=== PATIENT | male | born 1955 | race Caucasian/White ===

== ENCOUNTER 2016-03-18 14:28 | Emergency (ER) | payer MEDICARE ==
[2016-03-18 17:51] LABS: BASOPHILS 0.8 % (0.0-2.0); EOSINOPHILS 0 % (0-7); HEMATOCRIT 46.9 % (42.0-54.0); HEMOGLOBIN 15.6 g/dL (13.5-17.5); IMMATURE GRANULOCYTES 0.3 % (0-5); LYMPHOCYTES 14.4 % (15-50); MCH 31.1 pg (26.0-34.0); MCHC 33.3 g/dL (31.0-37.0); MCV 93.4 fL (80.0-100.0); MEAN PLATELET VOLUME 11.5 fL (7.4-10.4); NEUTROPHILS 69.5 % (40-80); PLATELET COUNT 202 10x3/uL (130-400); RBC 5.02 10x6/uL (4.20-6.10); RDW 13.2 % (11.5-14.5); WBC 7.9 10x3/uL (4.8-10.8)
[2016-03-18 18:24] LABS: ALKALINE PHOSPHATASE 62 U/L (46-116); ALT (SGPT) 55 U/L (10-68); BILIRUBIN - TOTAL 0.88 mg/dL (0.2-1.3); CALC OSMOLALITY 280 mosm/kg (275-300); CALCIUM 9.1 mg/dL (8.5-10.1); CARBON DIOXIDE 25.2 mmol/L (21.0-32.0); CHLORIDE - SERUM 101 mmol/L (98-107); CREATININE - SERUM 1.3 mg/dL (0.6-1.3); GLUCOSE 115 mg/dL (74-106); POTASSIUM - SERUM 3.9 mmol/L (3.5-5.1); PROTEIN - SERUM 7.9 g/dL (6.4-8.2); SODIUM 139 mmol/L (136-145); UREA NITROGEN 18 mg/dL (7-18); eGFR NON AFRICAN AMERICAN 60 mL/min (90-120)
[2016-03-18 18:32] LABS: CREATINE KINASE 65 UL (21-232); PRO BNP 212 pg/mL (0-125)
[2016-03-18 18:57] LABS: TROPONIN-I < 0.017 ng/mL (0.000-0.060)
[2016-03-18 19:59] LABS: APPEARANCE HAZY (CLEAR); BILIRUBIN NEGATIVE (NEGATIVE); COLOR DK YELLOW (YELLOW); GLUCOSE NEGATIVE (NEGATIVE); KETONE NEGATIVE (NEGATIVE); LEUKOCYTE ESTERASE TRACE (NEGATIVE); NITRITE NEGATIVE (NEGATIVE); PROTEIN 1+ mg/dL (NEGATIVE); SPECIFIC GRAVITY 1.025 (1.005-1.020); UROBILINOGEN NORMAL (NORMAL)
[2016-03-18 20:01] LABS: AMORPHOUS SEDIMENT <1+ /lpf (NONE SEEN); BACTERIA FEW /hpf (NONE SEEN); EPITHELIAL CELLS 0-5 /hpf (0-5); HYALINE CAST OCC /lpf (NONE SEEN); MUCUS >1+ /lpf (NONE SEEN); RED CELLS - URINE 0-5 /hpf (0-5); WHITE CELLS - URINE 0-5 /hpf (0-5)
== END 2016-03-18 20:20 | disposition home or self-care (01) ==
LOC: D.ER 14:28
PROVIDERS: Family Medicine
DX: J11.1 Influenza due to unidentified influenza virus with other respiratory manifestations (principal); R53.1 Weakness; I10 Essential (primary) hypertension

== ENCOUNTER → 2017-06-05 07:56 | Outpatient (CLI) | payer MEDICARE | END | disposition home or self-care (01) | LOC: D.MRI 06-03 13:00 | DX: M25.511 Pain in right shoulder (principal) ==

== ENCOUNTER 2017-09-12 06:25 | Day surgery (SDC) | payer MEDICARE ==
[2017-09-10 10:11] LABS: HEMATOCRIT 45.1 % (42.0-54.0); HEMOGLOBIN 15.2 g/dL (13.5-17.5); MCH 31.1 pg (26.0-34.0); MCHC 33.7 g/dL (31.0-37.0); MCV 92.4 fL (80.0-100.0); MEAN PLATELET VOLUME 10.9 fL (7.4-10.4); RBC 4.88 10x6/uL (4.20-6.10); RDW 12.5 % (11.5-14.5); WBC 7.2 10x3/uL (4.8-10.8)
[~2017-09-12] VITALS: Ht 188 cm; Wt 96.6 kg
--- NOTE | ~2017-09-12 | OP ---
PATIENT NAME: ANA SMITH MEDICAL RECORD: [id number] :55 LOCATION:[facility] ADMISSION DATE: SURGEON: TOMAS MOREL MD DATE OF OPERATION: 09/12/2017 PREOPERATIVE DIAGNOSIS: Rotator cuff tear of the right shoulder. POSTOPERATIVE DIAGNOSIS: Rotator cuff tear of the right shoulder. PROCEDURES: Arthroscopic rotator cuff repair of the shoulder with subacromial decompression and acromioplasty. SURGEON: Tomas Morel MD ANESTHESIA: General. INTRAOPERATIVE COMPLICATIONS: None. SUMMARY OF PATHOLOGIC FINDINGS: The patient did indeed have a full-thickness rotator cuff tear. While initially he was thought to have SLAP tear, he did but it was more degenerative in nature and not disconnected. At the time of surgery, the patient was found to have full-thickness rotator cuff tear with residual acromion. OPERATIVE SUMMARY IN DETAIL: After obtaining the appropriate preoperative orthopaedic surgery consent as well as anesthetic consultation, evaluation, and clearance, the patient was brought to the operating room and placed on the operating table in the supine position. After general laryngeal mask airway was administered, the patient was placed in a left lateral decubitus position. All pressure points were well padded to include down leg peroneal pad as well as axillary roll. The patient was held firmly to the operating table using the vacuum pack suction system. The patient's right upper extremity and shoulder were then prepped and draped in routine sterile fashion. The arm was held in Arthrex traction at 30 degrees of forward flexion and 30 degrees of abduction with 10 pounds of traction laterally. Arthroscopy was established in the glenohumeral joint from posterior portal. Transrotator cuff portal was established, through which debridement of the rotator cuff tear was carried out. Minimal debridement was done of the labrum at the area of the labral tearing. Attention was then turned to the subacromial space. While in the subacromial space, surface tissue ablation system was used to denude the undersurface of acromion of all soft tissue elements. A 5.0 barrel bur was used to perform an acromioplasty of the residual anterior acromion hook. Decortication was carried out over the footprint of supraspinatus tendon. Then, a #2 FiberTape was passed in inverted mattress style and anchored laterally with a 5.5 SwiveLock from Arthrex. Having completed this, arthroscopy portal was closed in routine interrupted fashion. Sterile dressings were applied. The patient was awakened and taken to recovery room in stable condition. All final needle and sponge counts were correct. TRANSINT:[id number] Voice Confirmation ID: [id number] DOCUMENT ID: [id number] OPERATIVE REPORT [id number] ANA SMITH MD, TOMAS BHANDARI at 1547 CC: [id number] DICTATION DATE: 09/16/17918 COMBINATION WELDER APPRENTICE: 09/16/17 1227 [facility] 09/12/17 [id number] [place] [address]
[~2017-09-12 06:25] MED LIST: ZESTRIL20 MG PO
[2017-09-12 11:47] VITALS: BP 131/85; Ht 188 cm; Wt 96.6 kg
[2017-09-12] MEDS ORDERED: HYDROCODONE-APA1 TAB PO (13:44)
== END 2017-09-12 15:30 | disposition home or self-care (01) ==
LOC: D.OPS 06:25 → D.PAN 11:15 → D.OPS 12:15
PROVIDERS: Anesthesiology
DX: M75.121 Complete rotator cuff tear or rupture of right shoulder, not specified as traumatic (principal); S43.431A Superior glenoid labrum lesion of right shoulder, initial encounter; X58.XXXA Exposure to other specified factors, initial encounter; Z01.812 Encounter for preprocedural laboratory examination

== ENCOUNTER → 2017-09-19 10:24 | Outpatient (CLI) | payer MEDICARE ==
[2017-09-12 11:47] VITALS: BMI 27.4
[~2017-09-19 10:24] MED LIST changes: +HYDROCODONE-APA1 TAB PO
== END | disposition home or self-care (01) ==
LOC: D.CT 10:24
DX: R91.1 Solitary pulmonary nodule (principal)

== ENCOUNTER → 2018-03-06 11:11 | Outpatient (CLI) | payer MEDICARE ==
[2017-09-12 11:47] VITALS: BMI 27.4
[2018-03-07 09:14] LABS: IMMUNOGLOBULIN A 285 mg/dL (61-437)
== END | disposition home or self-care (01) ==
LOC: D.LAB 02-18 08:30 → D.RT 02-18 08:30 → D.CT 02-18 08:30 → D.RT 02-18 09:45 → D.LAB 02-18 10:00 → D.RT 11:00
PROVIDERS: Internal Medicine Pulmonary Disease
DX: R91.1 Solitary pulmonary nodule (principal); R06.09 Other forms of dyspnea

== ENCOUNTER 2018-12-26 11:06 | Emergency (ER) | payer MEDICARE ==
[~2018-12-26] VITALS: Ht 188 cm; Wt 93.2 kg
[2018-12-26 11:47] LABS: EOSINOPHILS 6.6 % (0-7); HEMATOCRIT 43.9 % (42.0-54.0); HEMOGLOBIN 15.2 g/dL (13.5-17.5); IMMATURE GRANULOCYTES 0.3 % (0-5); LYMPHOCYTES 41.5 % (15-50); MCH 31.8 pg (26.0-34.0); MCHC 34.6 g/dL (31.0-37.0); MCV 91.8 fL (80.0-100.0); MEAN PLATELET VOLUME 11.3 fL (7.4-10.4); MONOCYTES 8.2 % (2-11); NEUTROPHILS 42.4 % (40-80); PLATELET COUNT 263 10x3/uL (130-400); RBC 4.78 10x6/uL (4.20-6.10); WBC 6.8 10x3/uL (4.8-10.8)
[2018-12-26 11:51] LABS: CALC OSMOLALITY 278 mosm/kg (275-300); CALCIUM 8.6 mg/dL (8.5-10.1); CARBON DIOXIDE 27.6 mmol/L (21.0-32.0); CHLORIDE - SERUM 106 mmol/L (98-107); CREATININE - SERUM 1.1 mg/dL (0.6-1.3); GLUCOSE 137 mg/dL (74-106); POTASSIUM - SERUM 3.5 mmol/L (3.5-5.1); SODIUM 138 mmol/L (136-145); UREA NITROGEN 15 mg/dL (7-18); eGFR NON AFRICAN AMERICAN 72 mL/min (90-120)
[2018-12-26 12:08] LABS: ALBUMIN 3.6 g/dL (3.4-5.0); ALKALINE PHOSPHATASE 92 U/L (46-116); ALT (SGPT) 78 U/L (10-68); CKMB 2.6 U/L (0.0-3.6); CREATINE KINASE 219 UL (21-232); PROTEIN - SERUM 7.2 g/dL (6.4-8.2); TROPONIN-I < 0.017 ng/mL (0.000-0.060)
[2018-12-26 12:40] VITALS: Ht 188 cm; Wt 93.2 kg
[2018-12-26 13:12] VITALS: BP 138/84
--- NOTE | 2019-01-06 11:40 | CN ---
PATIENT NAME:ANA HEDRICK MEDICAL RECORD: [id number] : 55 LOCATION:[facility] ADMIT DATE: ACCOUNT: [id number] CONSULTING PHYSICIAN: LAURA RIOS MD REFERRING PHYSICIAN: NANCY TEJADA MD DATE OF CONSULTATION: 12/26/2018 ADMITTING DIAGNOSES: 1. Chest pain. 2. Hypertension. 3. Family history of coronary artery disease. HISTORY OF PRESENT ILLNESS: Mr. Hedrick presents with 4 days of chest pain, some typical components that there is a pressure sensation radiating to his arm, feeling like a heaviness across the anterior chest, some atypical components and that there is definitely positional sharp component to the pain as well. He has no previous cardiac history, no previous cardiac workup. He does have a family history of coronary artery disease. His EKG has nonspecific ST-T abnormalities in the lateral leads. PHYSICAL EXAMINATION: CONSTITUTIONAL/GENERAL APPEARANCE: Well nourished, well developed, appears stated age. EYES: Lids and conjunctivae noninjected. No discharge. No pallor. ENT: Lips within normal limit. No cyanosis. No pallor. NECK: Carotid arteries, bilateral normal upstroke. No bruits. No thrills. No jugular venous pressure or distention. CERVICAL LYMPH NODES: Nontender. Nonenlarged. THYROID: Not enlarged. No nodules. CARDIOVASCULAR: Precordial exam, nondisplaced. No heaves or pericardial thrills. Rate and rhythm, regular. Heart sounds, normal S1, normal S2. No S3, no gallop, no rub. Systolic murmur, not heard. Diastolic murmur, not heard. RESPIRATORY: Respiratory effort, unlabored. Normal curvature. No thoracic deformity. No chest wall tenderness. Percussion, resonant. Auscultation, clear. No wheezes, no rales, no rhonchi. ABDOMEN: Soft, nondistended, nontender. No abdominal pain, no vomiting and normal appetite. MUSCULOSKELETAL: No joint tenderness, normal gait, normal tone. SKIN: Warm and dry. OVERALL IMPRESSION: Chest pain, some typical components for angina, some atypical components. At this time, we will place him on Imdur 30 mg every day and risk stratify with stress testing as an outpatient. TRANSINT:[id number] Voice Confirmation ID: [id number] DOCUMENT ID: [id number] LAURA RIOS MD at 1140 CC: [id number] DICTATION DATE: 12/26/18 1241 ANIMAL NUTRITION TEACHER: 12/26/18 1335 DEP ER 12/26/18 [id number] [place] [address]
== END 2018-12-26 13:10 | disposition home or self-care (01) ==
LOC: D.ER 11:06
PROVIDERS: Family Medicine
DX: R07.9 Chest pain, unspecified (principal)

== ENCOUNTER → 2019-01-08 11:32 | Outpatient (CLI) | payer MEDICARE ==
[2018-12-26 12:40] VITALS: BMI 26.3
--- NOTE | 2019-01-14 14:07 | ST ---
PATIENT:ANA SMITH MEDICAL RECORD: [id number] SEX: M [facility] ORDER #: ADMISSION DATE: 01/08/19 AGE OF PATIENT: 63 REFERRING PHYSICIAN: INTERPRETING PHYSICIAN: LAURA RIOS MD DATE OF SERVICE: 01/08/2019 INDICATION: Angina, hypertension, family history of coronary artery disease. TECHNIQUE: He was exercised on standard Lexiscan protocol with 33 mCi of sestamibi injected at peak stress, 11 mCi used previously for rest images. FINDINGS: Gated SPECT reveals a preserved ejection fraction at 60% with decreased thickening and brightening throughout the inferior segments. SPECT imaging Cardiolite was used as myocardial perfusion agent. There is a fixed perfusion defect inferiorly compatible with previous inferior myocardial infarction. There is no evidence of reversibility, in fact the defect improves showing reversed redistribution with stress. OVERALL IMPRESSION: This is a stable nuclear stress test showing only a fixed perfusion defect inferiorly. No ongoing ischemia and ejection fraction preserved at 60%. Continue medical management of the coronary artery disease and cardiac risk factors. TRANSINT:[id number] Voice Confirmation ID: [id number] DOCUMENT ID: [id number] LAURA RIOS MD at 1407 CC: [id number] DICTATION DATE: 01/09/19 1448 GRAVITY PROSPECTING OPERATOR: 01/10/19 0740 [facility] CLI 01/08/[address] [address]
== END | disposition home or self-care (01) ==
LOC: D.HCCARDIO 11:32
PROVIDERS: ATTEND Internal Medicine Interventional Cardiology
DX: R07.9 Chest pain, unspecified (principal)

== ENCOUNTER 2019-05-23 08:50 | Emergency (ER) | payer MEDICARE ==
[~2019-05-23] VITALS: Ht 188 cm; Wt 97.7 kg
[2019-05-23 08:55] VITALS: Ht 188 cm; Wt 97.7 kg
[2019-05-23] MEDS ORDERED: HYDROCODON-ACE1 EA10 PO (09:54)
[2019-05-23 10:19] LABS: BASOPHILS 0.7 % (0-2); EOSINOPHILS 5.2 % (0-7); HEMATOCRIT 39.6 % (42.0-54.0); HEMOGLOBIN 13.4 g/dL (13.5-17.5); IMMATURE GRANULOCYTES 0.4 % (0-5); LYMPHOCYTES 18.8 % (15-50); MCH 31.1 pg (26.0-34.0); MCHC 33.8 g/dL (31.0-37.0); MCV 91.9 fL (80.0-100.0); MEAN PLATELET VOLUME 10.8 fL (7.4-10.4); MONOCYTES 7.5 % (2-11); NEUTROPHILS 67.4 % (40-80); PLATELET COUNT 298 10x3/uL (130-400); RBC 4.31 10x6/uL (4.20-6.10); RDW 13.3 % (11.5-14.5); WBC 7.6 10x3/uL (4.8-10.8)
[2019-05-23 10:35] LABS: ANION GAP 11.4 mmol/L (8-16); CALCIUM 8.6 mg/dL (8.5-10.1); CARBON DIOXIDE 27.4 mmol/L (21.0-32.0); CREATININE - SERUM 1.1 mg/dL (0.6-1.3); POTASSIUM - SERUM 3.8 mmol/L (3.5-5.1)
[2019-05-23 10:40] LABS: ALBUMIN 3.4 g/dL (3.4-5.0); BILIRUBIN - TOTAL 0.48 mg/dL (0.2-1.3); PROTEIN - SERUM 6.5 g/dL (6.4-8.2)
[2019-05-23 10:45] LABS: APTT 29.4 SECONDS (22.8-39.4); INR 1.1 (0.85-1.17); PROTIME 14.1 SECONDS (11.6-15.0)
[2019-05-23 10:49] LABS: BILIRUBIN NEGATIVE (NEGATIVE); GLUCOSE NEGATIVE (NEGATIVE); KETONE NEGATIVE (NEGATIVE); NITRITE NEGATIVE (NEGATIVE); SPECIFIC GRAVITY 1.015 (1.005-1.020); UROBILINOGEN NORMAL (NORMAL)
[2019-05-23 11:02] VITALS: BP 171/84
== END 2019-05-23 11:03 | disposition home or self-care (01) ==
LOC: D.ER 08:50
PROVIDERS: Family Medicine
DX: S22.42XA Multiple fractures of ribs, left side, initial encounter for closed fracture (principal); S20.212A Contusion of left front wall of thorax, initial encounter; I10 Essential (primary) hypertension; V06.99XA Pedestrian with other conveyance injured in collision with other nonmotor vehicle, unspecified whether traffic or nontraffic accident, initial encounter; Y93.9 Activity, unspecified; Y92.9 Unspecified place or not applicable

== ENCOUNTER 2020-09-03 15:22 | Inpatient (IN) | payer MEDICARE, MEDICAID ==
[~2020-09-03] VITALS: Ht 188 cm; Wt 105.2 kg
[~2020-09-03 15:22] MED LIST changes: +BACLOFEN20 M1 PO; +HYDROCODON-ACE1 EA10 PO; +VOLTAREN75 MG PO
[2020-09-03 18:46] LABS: CALCIUM 9.5 mg/dL (8.5-10.1); CARBON DIOXIDE 29.3 mmol/L (21.0-32.0); CREATININE - SERUM 1.2 mg/dL (0.6-1.3); POTASSIUM - SERUM 4.3 mmol/L (3.5-5.1)
[2020-09-03 18:47] LABS: EOSINOPHILS 4.4 % (0-7); HEMATOCRIT 46.5 % (42.0-54.0); HEMOGLOBIN 15.7 g/dL (13.5-17.5); LYMPHOCYTES 35.6 % (15-50); MCH 31.2 pg (26.0-34.0); MCHC 33.8 g/dL (31.0-37.0); MCV 92.2 fL (80.0-100.0); MEAN PLATELET VOLUME 9.4 fL (7.4-10.4); MONOCYTES 10.5 % (2-11); NEUTROPHILS 48.5 % (40-80); PLATELET COUNT 255 10x3/uL (130-400); RBC 5.05 10x6/uL (4.20-6.10); RDW 12.9 % (11.5-14.5); WBC 7.7 10x3/uL (4.8-10.8)
[2020-09-03 18:52] LABS: ALBUMIN 4.2 g/dL (3.4-5.0); BILIRUBIN - TOTAL 1.31 mg/dL (0.2-1.3); PROTEIN - SERUM 7.9 g/dL (6.4-8.2)
[2020-09-03 18:55] LABS: APTT 32.4 SECONDS (22.8-39.4)
[2020-09-03 19:03] LABS: INR 1.17 (0.85-1.17); PROTIME 13.8 SECONDS (11.6-15.0)
[2020-09-03 21:24] VITALS: BP 142/83
[2020-09-04] VITALS: BP 126/73
[2020-09-04 00:17] VITALS: BP 139/77; Ht 188 cm; Wt 105.2 kg
[2020-09-04 04:00] VITALS: BP 124/79
[2020-09-04 07:03] LABS: BASOPHILS 1.4 % (0-2); EOSINOPHILS 8.4 % (0-7); HEMATOCRIT 44.6 % (42.0-54.0); HEMOGLOBIN 14.9 g/dL (13.5-17.5); MCH 31.1 pg (26.0-34.0); MCHC 33.4 g/dL (31.0-37.0); MEAN PLATELET VOLUME 9.8 fL (7.4-10.4); MONOCYTES 12.8 % (2-11); NEUTROPHILS 35.4 % (40-80); PLATELET COUNT 239 10x3/uL (130-400); RBC 4.79 10x6/uL (4.20-6.10); RDW 13.5 % (11.5-14.5); WBC 5.8 10x3/uL (4.8-10.8)
[2020-09-04 07:38] LABS: ALBUMIN 3.5 g/dL (3.4-5.0); ALKALINE PHOSPHATASE 80 U/L (30-120); ALT (SGPT) 119 U/L (10-68); BILIRUBIN - TOTAL 0.72 mg/dL (0.2-1.3); CALC OSMOLALITY 283 mosm/kg (275-300); CALCIUM 8.7 mg/dL (8.5-10.1); CARBON DIOXIDE 25.4 mmol/L (21.0-32.0); CHLORIDE - SERUM 106 mmol/L (98-107); GLUCOSE 98 mg/dL (74-106); MAGNESIUM - SERUM 2.2 mg/dL (1.8-2.4); PHOSPHOROUS 4.1 mg/dL (2.5-4.9); POTASSIUM - SERUM 3.9 mmol/L (3.5-5.1); SODIUM 141 mmol/L (136-145); UREA NITROGEN 21 mg/dL (7-18); eGFR NON AFRICAN AMERICAN 80 mL/min (90-120)
[2020-09-04 08:01] VITALS: BP 120/68
--- NOTE | 2020-09-04 09:43 | NUR ---
IV THERAPY REMOVED BY PT WITH TIP INTACT. PT REMOVED TELEMETRY WELL AT 0720 THIS AM. PT REFUSED WHEEL CHAIR TO ROOM. RANDI
--- NOTE | 2020-09-04 19:35 | MORECARE ---
CASE MANAGEMENT DISCHARGE SUMMARY PATIENT: ANA SMITH UNIT: [id number] ADM DATE: 09/03/20 AGE: 65 : 55 SEX: M ROOM/BED: D[facility] AUTHOR: KEVIN,DOC PHYSICIAN: REFERRING PHYSICIAN: JEEVAN GRAHAM MD DATE OF SERVICE: 09/04/20 Case Management Discharge Planning Summary DCP REVIEW SUMMARY ANTICIPATED D/C DATE: 09/04/2020 EXPECTED LOS : 1 CASE STATUS: DCP Initiated INITIAL REVIEW: 09/03/2020 INITIAL REVIEWER: Jose Cota FINAL DISCHARGE DISPOSITION: : FINAL REVIEWER: FINAL REVIEW DATE: DCP Focus Questions & Answers QUESTION: ANSWER : PATIENT: ANA SMITH ENCOUNTER: [id number] MEDICAL RECORD#: [id number] ADMISSION DATE: 09/03/2020 DISCHARGE DATE: 09/04/2020 ATTENDING MD: AUDRA: AGE: 65 MARITAL STATUS: S DC PLAN ID: [id number] FACILITY: [facility] PRINTED ON: 09/04/20 19:35 CT All edits/amendments must be made on the electronic document DICTATION DATE: 09/04/201933 FOUNDATION ASSISTANT: CLIFF 09/04/201933 RPT#: [id number] DC DATE:09/04/20 STATUS: DIS IN [facility] [address] [place] [address] END OF REPORT
--- NOTE | 2020-09-04 19:46 | MORECARE ---
CASE MANAGEMENT DISCHARGE SUMMARY PATIENT: ANA HEDRICK UNIT: [id number] ADM DATE: 09/03/20 AGE: 65 : 55 SEX: M ROOM/BED: D.2234 AUTHOR: MARIO BROWN PHYSICIAN: REFERRING PHYSICIAN: JEEVAN GRAHAM MD DATE OF SERVICE: 09/04/20 Case Management Discharge Planning Summary COMMENTS ENTERED DATE: 09/04/20 19:39 CT COMMENT TYPE: Discharge Planning REVIEWER: Jose Cota CM met with patient to complete DC plan and to evaluate needs. Patient lives independently alone with strong support and stated that his person to notify is his brother, Derrick Hedrick, . Patient stated that his home is safe and has electricity and running water. Patient stated that he is able to enter and move about his home without difficulty. Patient stated that he has no problems paying for medications and he fills his medications at [facility]. At discharge, the patient plans to return home and feels this is a safe discharge. CM discussed availability of home health, rehab services, and medical equipment. Patient declined HHS, SNF, IPR, and DME. Patient voiced no other needs at this time and is satisfied with DC plan. Transportation provider at discharge will be via cab paid by patient. DC IMM delivered, explained, signed by the patient, and placed in chart. Signed form also left with the patient. CM will continue to follow and will assist as needed with dc plans/needs. DCP REVIEW SUMMARY ANTICIPATED D/C DATE: 09/04/2020 EXPECTED LOS : 1 CASE STATUS: DCP Initiated INITIAL REVIEW: 09/03/2020 INITIAL REVIEWER: Jose Cota FINAL DISCHARGE DISPOSITION: : FINAL REVIEWER: FINAL REVIEW DATE: DCP Focus Questions & Answers DCP Evaluation QUESTION: ANSWER Patient gives permission to discuss discharge plans with: (name, relationship and number) : brotherDerrick, Patient's ability to cope with chronic illness : d. No chronic illness Patient's current cognitive status: : *Oriented to person, place, situation, time and present Family / Caregiver's ability to cope with chronic illness: : a. Adequate (ability to meet patient's medical needs, ensures patient attends medical appts.) Patient and/or caregiver agree upon recommended discharge plan? : Yes Physical Status: : Independent with ADL's Family / Caregiver's ability to cope with chronic illness: : a. Adequate (ability to meet patient's medical needs, ensures patient attends medical appts.) Functional screen assessment: : Basic needs can adequately be met by self Does the patient have the ability to pay for or attain post discharge needs / services? : Yes Living Arrangements: : Home Alone with Support Is there a likelihood that the patient will require additional services to return to the preadmission environment? : No Equipment needed for post hospitalization: : None Baseline cognitive status: : *Oriented to person, place, situation, time and present Patient with capacity for self-care or can be cared for in same environment as prior to hospitalization? : Yes Physical environment modification needed / anticipated for discharge: : No Medication Management: : Patient states can afford medications Medication Management: : Patient states can read and understand medication labels Pharmacy name(s): : [facility]. Does Patient have transportation to get home and to follow-up medical appointments when discharged from the hospital? : Yes Would patient like to participate in any Care Coordination programs (if applicable): : Not applicable Does the patient have electricity at home? : Yes Does the patient have running water in their house? : Yes Equipment in use: : None Mental health screen: : No mental health history DCP Re-evaluation QUESTION: ANSWER Would patient like to participate in any Care Coordination programs (if applicable): : Not applicable PATIENT: ANA HEDRICK ENCOUNTER: [id number] MEDICAL RECORD#: [id number] ADMISSION DATE: 09/03/2020 DISCHARGE DATE: 09/04/2020 ATTENDING MD: AUDRA: AGE: 65 MARITAL STATUS: S DC PLAN ID: [id number] FACILITY: [facility] PRINTED ON: 09/04/20 19:45 CT All edits/amendments must be made on the electronic document DICTATION DATE: 09/04/201944 NEUROLOGIST: CLIFF 09/04/201944 RPT#: [id number] DC DATE:09/04/20 STATUS: DIS IN [facility] [address] [place] [address] END OF REPORT
== END 2020-09-04 09:47 | disposition home or self-care (01) | DRG 536 ==
LOC: D.ER 15:22 → D.EDHOLD 17:54 → D.MS 20:08
PROVIDERS: Family Medicine; ADMIT Family Medicine; ATTEND Family Medicine
DX: S32.591A Other specified fracture of right pubis, initial encounter for closed fracture (principal); S22.31XA Fracture of one rib, right side, initial encounter for closed fracture; S80.02XA Contusion of left knee, initial encounter; I10 Essential (primary) hypertension; W01.0XXA Fall on same level from slipping, tripping and stumbling without subsequent striking against object, initial encounter; Y93.9 Activity, unspecified; Y92.9 Unspecified place or not applicable

== ENCOUNTER 2020-09-05 15:21 | Emergency (ER) | payer MEDICARE, MEDICAID ==
[~2020-09-05] VITALS: Ht 188 cm; Wt 97.7 kg
[2020-09-05 15:45] VITALS: BP 110/83; Ht 188 cm; Wt 97.7 kg
== END 2020-09-05 19:30 | disposition left against medical advice (07) ==
LOC: D.ER 15:21
DX: M54.9 Dorsalgia, unspecified (principal)